=== PATIENT | female | born 1955 | race Two or more races ===

== ENCOUNTER 2019-08-11 21:41 | Emergency (ER) | payer OTHER ==
[~2019-08-11] VITALS: Ht 152.4 cm; Wt 90.7 kg
--- NOTE | 2019-08-11 21:54 | NUR ---
PT AAOX4. AMBUALTORY WITH STEADY GAIT. BIBRA C/O NOSE BLEED. 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 PT WAS EDUCATED ON HOW TO TAKE CARE OF THE BLEEDING BUT THE PT WANTED TO VISIT THE ED. PT PLACED ON MONITOR AND PULSE OX. VSS. NO ACUTE DISTRESS NOTED. EMT AT BEDSIDE FOR NOSE CLAMP.
[2019-08-11 22:16] LABS: BASOPHILS % (AUTO) 0.2 % (0.0-2.0); EOSINOPHILS % (AUTO) 0.8 % (0.0-6.0); HEMATOCRIT 37 % (33-45); HEMOGLOBIN 12.4 g/dL (11.5-14.8); LYMPHOCYTES # (AUTO) 1.6 /CMM (0.8-4.8); LYMPHOCYTES % (AUTO) 11.3 % (20.0-44.0); MEAN CORPUSCULAR HGB CONC 34 g/dl (31.0-36.0); MEAN CORPUSCULAR VOLUME 89 fL (82-100); MONOCYTES # (AUTO) 0.6 /CMM (0.1-1.30); MONOCYTES % (AUTO) 4.7 % (2.0-12.0); NEUTROPHILS # (AUTO) 11.4 /CMM (1.8-8.9); PLATELET COUNT (AUTO) 187 /CMM (150-450); RED BLOOD CELL COUNT(AUTO) 4.16 MIL/uL (4.0-5.2); WHITE BLOOD COUNT (AUTO) 13.7 K/uL (4.3-11.0)
--- NOTE | 2019-08-11 22:17 | NUR ---
[phone] [facility]
[2019-08-11] MEDS ORDERED: OXYMETAZOLINE HCL NASAL SPRAY 30 ML BOTTLE NS ONE ×2 (22:26→22:30)
--- NOTE | 2019-08-11 22:39 | NUR ---
Patient discharged to home in stable condition. Written and verbal after care instructions given. Patient verbalizes understanding of instruction. Pt ambulated with steady gait.
[2019-08-11 22:40] VITALS: BP 128/78
== END 2019-08-11 22:40 | disposition home or self-care (01) ==
LOC: ER 21:42
DX: R04.0 Epistaxis (principal); I10 Essential (primary) hypertension; E11.9 Type 2 diabetes mellitus without complications
CPT/HCPCS: 36415; 85025-TC; 85730-TC